=== PATIENT | male | born 1985 | race Caucasian/White ===

== ENCOUNTER 2017-05-25 11:27 | Emergency (ER) | payer OTHER, SELFPAY ==
[2017-05-25 11:27] VITALS: BP 167/110; PULSE 67; RESP 18; TEMP 36.6; O2SAT 96; BMI 37.3
--- NOTE | 2017-05-25 11:47 | NURSING ---
NO OLD EKGS
--- NOTE | 2017-05-25 11:57 | RAD_ITS ---
STUDY: X-RAY CHEST REASON FOR EXAM: Male, 21 years old. Bilateral lower leg edema. TECHNIQUE: Single AP portable view of the chest. COMPARISON: None. FINDINGS: There are monitoring devices. The lungs are clear and expanded. There is no demonstrated pleural abnormality. Normal size heart. Normal mediastinum and ambika. Normal visualized pulmonary arteries. Normal visualized aortic arch and descending thoracic aorta. Normal visualized thoracic spine. Normal visualized ribs, clavicles, and shoulders. There is no demonstrated abnormality of the visualized soft tissue structures of the upper abdomen. RAD/Chest 1 View (Portable) IMPRESSION: Normal x-ray examination of the chest. Electronically Signed: Gera Delcid MD at 12:14 EDT , Service support ,
--- NOTE | 2017-05-25 11:58 | EKG12_ITS ---
Test Reason : Blood Pressure : / mmHG Vent. Rate : 076 BPM Atrial Rate : 076 BPM P-R Int : 190 ms QRS Dur : 098 ms QT Int : 390 ms P-R-T Axes : 000 -08 236 degrees QTc Int : 438 ms Normal sinus rhythm T wave abnormality, consider lateral ischemia Abnormal ECG Confirmed by MARLON INMAN, STEPHIE ([id number]), film and video editor SAIRA NIEVES ([id number]) on 05/28/2017 1:30:35 PM Referred By: GIUSEPPE Confirmed By:STEPHIE MASON MD
--- NOTE | 2017-05-25 11:58 | VDLE_ITS ---
Reason For Study: LEG SWELLING RIGHT LEFT GSV is normal. GSV is normal. CFV is compressible, spontaneous, phasic, CFV is compressible, spontaneous, phasic, competent and demonstrates normal competent, and demonstrates normal augmentation. augmentation. FV is compressible, spontaneous, phasic, FV is compressible, spontaneous, phasic, competent and demonstrates normal competent and demonstrates normal augmentation. augmentation. POP V is compressible, spontaneous, phasic, POP V is compressible, spontaneous, phasic, competent and demonstrates normal competent and demonstrates normal augmentation. augmentation. T/P Trunk is compressible. T/P Trunk is compressible. PTV is compressible. PTV is compressible. RT PerV is compressible. LT PerV is compressible. Procedure Exam performed in department. A preliminary report was called and/or faxed to Dr. Cowan. Interpretation Summary Deep veins of the lower extremities are bilaterally patent and compressible segmentally. There is no evidence of deep vein thrombosis on either side. Valvular competence appears intact within the proximal deep venous systems bilaterally. The greater saphenous veins appear bilaterally patent and compressible segmentally. Ordering Physician: Arely Cowan Performed By: Elise Azul RVT
[2017-05-25 12:35] LABS: Absolute Lymphocyte Count 1.93 X10^3/ul (0.83-4.51); Absolute Neutrophil Count 5.5 X10^3/uL (2.0-7.7); Basophil# 0.06 X10^3/uL; Basophil% 0.7 % (0-1); Eosinophil# 0.45 X10^3/uL; Eosinophils% 5.2 % (0-5); Hemoglobin 15.8 g/dl (13.0-16.5); Lymphocyte # 1.93 X10^3/ul (4.0); Lymphocyte % 22.1 % (19-41); Mean Corp Hgb Conc 32.9 g/gl (32-36); Mean Corpuscular Volume 88.1 fL (80-94); Neutrophil # 5.45 X10^3/uL (2.7-7.7); Neutrophil % 62.5 % (47-70); Platelet Count 259 K/mm3 (150-450); RBC Distribution Width CV 15.8 % (11.6-14.6); RBC Distribution Width SD 51.4 fl (35.1-43.9); Red Blood Count 5.45 M/mm3 (4.6-6.2); White Blood Count 8.7 K/mm3 (4.4-11.0)
[2017-05-25 12:36] LABS: POSITIVE COUNT NO; POSITIVE DIFFERENTIAL NO; POSITIVE MORPHOLOGY NO
[2017-05-25 12:47] LABS: Anion Gap 8 (5-15); BUN 17 mg/dL (7-18); BUN/Creat Ratio 12.1 RATIO (10-20); Calcium,Total 8.7 mg/dL (8.5-10.1); Chloride 101 mmol/L (98-107); EST Glomerular Filtration Rate 68 mL/min (>60); Est Glom Filt Rate - Afr Amer 82 mL/min (>60); Estimated Creatinine Clearance 95.12 ml/min; Glucose 91 mg/dL (74-106); Potassium 3.8 mmol/L (3.5-5.1); Sodium Level 140 mmol/L (136-145)
[2017-05-25 13:01] LABS: BNP,B-Type NATRIURETIC PEPTIDE 4.1 pg/mL (0-100)
--- NOTE | 2017-05-25 13:31 | ED.VISSUMM ---
- ER Visit Summary Date of Service: 05/25/17 Chief Complaint: Edema History of Present Illness: The patient is a 31 M who reports swelling to both legs for the last 3 days. He is on his feet a lot at work. He describes some mild pain around the ankles and lower legs. He denies chest pain or shortness of breath. He reportedly has a history of a stiff aortic valve. He does not follow up with doctors. Physical Examination: Vital signs are significant for blood pressure 167/110, otherwise unremarkable. Head neck examination is unremarkable. Heart is regular rate and rhythm. I do not appreciate a murmur. Lung sounds are clear. Abdomen is soft nontender. Lower extremity examination was 2+ edema to the bilateral ankles. He has small broken capillaries on the medial ankles. He has strong distal pulses. Test Results: Venous ultrasound of the legs unremarkable. CBC and chemistry studies are significant only for creatinine 1.4. BNP is normal. EKG is sinus at 76 with lateral T inversions. Do not have any priors available for comparison. Emergency Department Course and Treatment: Patient denies any chest pain or shortness of breath. I recommended follow-up with cardiology regarding this abnormal aortic valve. Treatment Plan: [] Disposition: Discharge Impression: Edema bilateral lower extremities This note was generated with [employer] dictation software. It may contain incorrect words, spelling, and punctuation that were not noted in review of the chart prior to signing ED Disposition - Plan for ED Patient: Chief Complaint: Edema Referrals: Care Physician,No Primary [Primary Care Provider] -
--- NOTE | 2017-05-25 13:33 | ED.DEP ---
ED Disposition - Plan for ED Patient: Disposition: Home or Assisted Living Chief Complaint: Edema Instructions: ED Leg Swelling Bilateral Referrals: Mau Matute MD [STAFF PHYSICIAN] - 1-2 Weeks
[2017-05-25 13:45] VITALS: BP 147/107; PULSE 77
== END 2017-05-25 13:47 | disposition home or self-care (01) ==
PROVIDERS: Emergency Provider Emergency Medicine
DX: R60.0 Localized edema (principal); E66.9 Obesity, unspecified; Z68.37 Body mass index [BMI] 37.0-37.9, adult
CPT/HCPCS: 71045; 80048; 83880; 85025; 93005; 93970; 99283

== ENCOUNTER → 2020-06-29 09:54 | Outpatient (CLI) | payer OTHER, MEDICAID, SELFPAY ==
[2020-06-24 13:38] VITALS: BMI 37.3
[2020-06-29 12:18] LABS: Absolute Lymphocyte Count 0.75 X10^3/uL (0.83-4.51); Absolute Neutrophil Count 6.7 X10^3/uL (2.0-7.7); Basophil# 0.05 X10^3/uL; Basophil% 0.6 % (0-1); Eosinophil# 0.33 X10^3/uL; Eosinophils% 3.9 % (0-5); Hemoglobin 10.1 g/dL (13.0-16.5); Lymphocyte # 0.75 X10^3/ul (0.83-4.51); Lymphocyte % 8.8 % (19-41); Mean Corp Hgb Conc 29.7 g/dL (32-36); Mean Corpuscular Hgb 26.2 pg (27.0-32.0); Mean Corpuscular Volume 88.1 fL (80-94); Mean Platelet Vol. 10.7 fl (6.2-12.0); Monocyte# 0.65 X10^3/uL; Monocyte% 7.6 % (0-10); NRBC Flagged by Analyzer 0 % (0-5); Neutrophil # 6.66 X10^3/uL (2.7-7.7); Neutrophil % 78.4 % (47-70); Platelet Count 304 K/mm3 (150-450); RBC Distribution Width CV 15.7 % (11.6-14.6); RBC Distribution Width SD 50.5 fl (35.1-43.9); Red Blood Count 3.86 M/mm3 (4.6-6.2); White Blood Count 8.5 K/mm3 (4.4-11.0)
[2020-06-29 12:33] LABS: Vitamin D,25 Hydroxy 18.9 ng/mL
[2020-06-29 12:45] LABS: Hemoglobin A1c 5.8 % (3.8-5.6)
[2020-06-29 13:17] LABS: AST(SGOT) 19 U/L (15-37); Alanine Aminotransfer ALT/SGPT 32 U/L (16-61); Albumin, Serum 3.7 g/dL (3.2-5.0); Alkaline Phosphatase 78 U/L (45-117); Anion Gap 9 (5-15); BUN 75 mg/dL (7-18); BUN/Creat Ratio 16.5 RATIO (10-20); Calcium,Total 8.9 mg/dL (8.5-10.1); Chloride 104 mmol/L (98-107); Cholesterol 234 mg/dL (200); Creatinine, Serum 4.55 mg/dL (0.70-1.30); EST Glomerular Filtration Rate 16 mL/min (>60); Est Glom Filt Rate - Afr Amer 19 mL/min (>60); Globulin 3.7 g/dL (2.2-4.2); Glucose 97 mg/dL (74-106); High Density Lipoprotein 46 mg/dL; Potassium 4.4 mmol/L (3.5-5.1); Protein, Total 7.4 g/dL (6.4-8.2); Sodium Level 136 mmol/L (136-145); Triglycerides 102 mg/dL; Very Low Density Lipoprotein 20 mg/dL (5-40)
[2020-06-29 16:16] LABS: Free T3 1.1 pg/mL (2.18-3.98); T4 Free Direct 0.33 ng/dL (0.76-1.46)
== END ==
PROVIDERS: PCP Internal Medicine; Referring Provider Internal Medicine; Visit Provider Internal Medicine
DX: N04.1 Nephrotic syndrome with focal and segmental glomerular lesions (principal); N19 Unspecified kidney failure; I10 Essential (primary) hypertension; R60.0 Localized edema; R79.89 Other specified abnormal findings of blood chemistry
CPT/HCPCS: 36415; 80053; 80061; 82306; 83036; 84439; 84443; 84481; 85025

== ENCOUNTER → 2020-07-08 13:02 | Outpatient (CLI) | payer OTHER, MEDICAID, SELFPAY ==
[2020-06-24 13:38] VITALS: BMI 37.3
--- NOTE | 2020-07-08 13:04 | ECHOD_ITS ---
Reason For Study: BICUSPID AORTIC VALVE Procedure This was a 2D Doppler, Color Flow transthoracic echocardiogram. Exam performed in department. Left Ventricle Normal LV size. Mild concentric left ventricular hypertrophy. Left ventricular systolic function is normal. The estimated ejection fraction is 60 %. Stage 2 diastolic dysfunction. No regional wall motion abnormalities noted. Right Ventricle Normal RV size. Normal systolic function. Atria Normal left atrium. Normal right atrium. Mitral Valve Normal mitral valve. Tricuspid Valve Normal tricuspid valve. Aortic Valve The aortic valve is not well visualized and a bicuspid valve cannot be completely excluded however the gradients appear to be suggestive of no stenosis. Pulmonic Valve Normal pulmonic valve. Great Vessels Normal aortic root. The pulmonary artery is normal size. Normal inferior vena cava. Pericardium/Pleural No pericardial effusion. MMode/2D Measurements & Calculations LVIDd: 6.0 cm IVSd: 1.2 cm LVOT diam: 2.3 cm LVIDs: 3.8 cm LVPWd: 1.4 cm LVOT area: 4.1 cm2 RVDd: 4.0 cm FS: 35.9 % Ao root diam: 3.3 cm LAV(MOD-bp): 91.8 ml LA A4 area: 26.3 cm2 LAV(MOD-bp) Indexed: 36.8 ml/m2 LAV(MOD-sp2): 90.5 ml LAV(MOD-sp4): 92.8 ml LA dimension(2D): 5.7 cm RA A4 area: 16.1 cm2 Doppler Measurements & Calculations MV E max scooter: 139.0 cm/sec Lat Peak E' Scooter: 13.2 cm/sec Med Peak E' Scooter: 10.4 cm/sec MV A max scooter: 67.5 cm/sec E/E' lat: 10.5 E/E' med: 13.3 MV E/A: 2.1 Ao V2 max: 202.9 cm/sec LV V1 max: 113.7 cm/sec SV(LVOT): 95.3 ml Ao max P.6 mmHg LV V1 max P.2 mmHg Ao V2 mean: 156.3 cm/sec LV V1 mean P.2 mmHg Ao mean P.5 mmHg LV V1 mean: 87.2 cm/sec Ao V2 VTI: 38.3 cm LV V1 VTI: 23.5 cm JASMINE(I,D): 2.5 cm2 JASMINE(V,D): 2.3 cm2 PA V2 max: 127.6 cm/sec TR max scooter: 329.3 cm/sec TR max P.5 mmHg ECHO/Echo Complete Interpretation Summary Normal LV size. Left ventricular systolic function is normal. The estimated ejection fraction is 60 %. The aortic valve is not well visualized and a bicuspid valve cannot be complete ly excluded however the gradients appear to be suggestive of no stenosis. Stage 2 diastolic dysfunction. Structurally normal valves. Ordering Physician: Toshia Mario Referring Physician: Toshia Mario Performed By: Elodia Tran, LUCA, RVT
== END ==
PROVIDERS: PCP Internal Medicine; Referring Provider Internal Medicine; Visit Provider Internal Medicine
DX: I35.0 Nonrheumatic aortic (valve) stenosis (principal)
CPT/HCPCS: 93306

== ENCOUNTER → 2020-09-02 10:21 | Outpatient (CLI) | payer OTHER, SELFPAY ==
[2020-06-24 13:38] VITALS: BMI 37.3
[2020-09-02 11:41] LABS: Hematocrit 32.8 % (40-54); Hemoglobin 9.9 g/dL (13.0-16.5); Mean Corp Hgb Conc 30.2 g/dL (32-36); Mean Corpuscular Hgb 25.5 pg (27.0-32.0); Mean Corpuscular Volume 84.5 fL (80-94); Platelet Count 272 K/mm3 (150-450); RBC Distribution Width CV 15.7 % (11.6-14.6); RBC Distribution Width SD 47.9 fl (35.1-43.9); Red Blood Count 3.88 M/mm3 (4.6-6.2); White Blood Count 7.1 K/mm3 (4.4-11.0)
[2020-09-02 11:55] LABS: Protein, Urine (Random) 121.9 mg/dL (<11.9); Protein:Creat Ratio 2715 mg/g CRE (0-200)
[2020-09-02 12:19] LABS: Albumin, Serum 3.9 g/dL (3.2-5.0); BUN 71 mg/dL (7-18); BUN/Creat Ratio 11.7 RATIO (10-20); Chloride 107 mmol/L (98-107); Creatinine, Serum 6.06 mg/dL (0.70-1.30); EST Glomerular Filtration Rate 11 mL/min (>60); Est Glom Filt Rate - Afr Amer 14 mL/min (>60); Glucose 92 mg/dL (74-106); Phosphorus 7.2 mg/dL (2.5-4.9); Potassium 4.1 mmol/L (3.5-5.1); Sodium Level 139 mmol/L (136-145)
[2020-09-02 12:21] LABS: Vitamin D,25 Hydroxy 38.8 ng/mL
[2020-09-02 12:27] LABS: PTHIN 138.9 pg/mL (18.4-80.1)
== END ==
PROVIDERS: PCP Internal Medicine; Referring Provider Internal Medicine Nephrology; Visit Provider Internal Medicine Nephrology
DX: N18.5 Chronic kidney disease, stage 5 (principal)
CPT/HCPCS: 36415; 80069; 82306; 82570; 83970; 84156; 85027

== ENCOUNTER → 2020-09-28 11:03 | Outpatient (CLI) | payer OTHER, SELFPAY ==
[2020-06-24 13:38] VITALS: BMI 37.3
[2020-09-28 13:22] LABS: Free T3 1.7 pg/mL (2.18-3.98); T4 Free Direct 0.54 ng/dL (0.76-1.46)
== END ==
PROVIDERS: PCP Internal Medicine; Referring Provider Internal Medicine; Visit Provider Internal Medicine
DX: E03.9 Hypothyroidism, unspecified (principal)
CPT/HCPCS: 36415; 84439; 84443; 84481

== ENCOUNTER → 2020-10-12 09:37 | Outpatient (CLI) | payer OTHER, MEDICAID, SELFPAY ==
[2020-06-24 13:38] VITALS: BMI 37.3
--- NOTE | 2020-10-12 09:41 | VDUE_ITS ---
Reason For Study: ESRD Right Arm Left Arm Right Cephalic Vein at the wrist measures Left Cephalic Vein at the wrist measures 0.26 x 0.26 cm. 0.25 x 0.24 cm. Right Cephalic Vein in the forearm measures Left Cephalic Vein in the forearm measures 0.26 x 0.25 cm. 0.26 x 0.23 cm. Right Cephalic Vein below antecub measures Left Cephalic Vein below antecub measures 0.29 x 0.27 cm. 0.38 x 0.37 cm. Right Cephalic Vein above antecub measures Left Cephalic Vein above antecub measures 0.54 x 0.56 cm. 0.45 x 0.45 cm. Right Cephalic Vein mid bicep measures 0.54 Left Cephalic Vein at mid bicep measures x 0.54 cm. 0.53 x 0.52 cm. Right Cephalic Vein at the shoulder measures Left Cephalic Vein at the shoulder measures 0.49 x 0.50 cm. 0.43 x 0.44 cm. Right Basilic Vein at the origin measures Basilic vein at origin measures 0.45 x 0.46 0.54 x 0.58 cm. cm. Right Basilic Vein mid bicep measures 0.48 x Basilic vein at bicep measures 0.48 x 0.48 0.47 cm. cm. Right Basilic Vein above antecub measures Basilic vein above antecub measures 0.46 x 0.38 x 0.38 cm. 0.43 cm. Right Brachial artery measures 0.45 x 0.44 Left Brachial artery measures 0.45 x 0.47 cm cm with a velocity of 144.9 cm/sec. with a velocity of 144.8 cm/sec. Right Radial artery measures 0.25 x 0.26 cm Left Radial artery measures 0.30x 0.30 cm with a velocity of 121.5 cm/sec. with a velocity of 100.7 cm/sec. VL/Saphenous Vein Mapping, Bilat Interpretation Summary Patent and compressible bilateral upper extremity cephalic and basilic veins wi th dimensions as noted Normal diameter and flow bilateral brachial and radial arteries Ordering Physician: Karine Pichardo Referring Physician: Toshia Mario Performed By: Smitha Grey RVT ?
== END ==
PROVIDERS: PCP Internal Medicine; Referring Provider Internal Medicine Nephrology; Visit Provider Internal Medicine Nephrology
DX: Z01.818 Encounter for other preprocedural examination (principal); N18.6 End stage renal disease
CPT/HCPCS: 93970

== ENCOUNTER 2020-11-02 08:25 | Day surgery (SDC) | payer OTHER, MEDICAID, SELFPAY ==
--- NOTE | 2020-10-28 10:18 | EKG12_ITS ---
Test Reason : PREOP Blood Pressure : / mmHG Vent. Rate : 070 BPM Atrial Rate : 070 BPM P-R Int : 192 ms QRS Dur : 102 ms QT Int : 422 ms P-R-T Axes : -15 005 -11 degrees QTc Int : 455 ms Normal sinus rhythm Normal ECG Confirmed by LYNNETTE INMAN, SHANIQUA ([id number]), book or script editor REESE BLACKMAN ([id number]) on 11/02/2020 8:14:06 AM Referred By: Roberth Gamez Confirmed By:CURT CHURCH MD
[2020-10-28 11:35] LABS: Hematocrit 37.5 % (40-54); Hemoglobin 11.7 g/dL (13.0-16.5); Mean Corp Hgb Conc 31.2 g/dL (32-36); Mean Corpuscular Hgb 26.3 pg (27.0-32.0); Mean Corpuscular Volume 84.3 fL (80-94); Mean Platelet Vol. 10.3 fl (6.2-12.0); Platelet Count 246 K/mm3 (150-450); RBC Distribution Width CV 16.5 % (11.6-14.6); RBC Distribution Width SD 50.1 fl (35.1-43.9); Red Blood Count 4.45 M/mm3 (4.6-6.2); White Blood Count 9.4 K/mm3 (4.4-11.0)
[2020-10-28 11:52] LABS: Anion Gap 8 (5-15); BUN 41 mg/dL (7-18); Calcium,Total 10.8 mg/dL (8.5-10.1); Chloride 99 mmol/L (98-107); Creatinine, Serum 5.85 mg/dL (0.70-1.30); EST Glomerular Filtration Rate 12 mL/min (>60); Est Glom Filt Rate - Afr Amer 14 mL/min (>60); Glucose 113 mg/dL (74-106); Potassium 3.7 mmol/L (3.5-5.1); Sodium Level 136 mmol/L (136-145)
[2020-11-02] VITALS (9 sets, daily range): BP systolic 147–157; BP diastolic 83–95; PULSE 72–76; RESP 16; TEMP 36.2–36.9; O2SAT 94–99; BMI 35.2
[2020-11-02] MEDS: Lactated Ringers 1,000 ML 100 ML IV (09:00)
--- NOTE | 2020-11-02 09:35 | HP.PCM_ITS ---
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 Is patient in pain?: No Allergies No Known Allergies Allergy (Verified 10/14/20 09:00) Medications compression socks, medium #1 ea 06/25/20 [Rx Confirmed 10/14/20] hydralazine 100 mg tablet 100 mg PO TID #180 tab 09/02/20 [Rx Confirmed 10/14/20] amlodipine 10 mg tablet 10 mg PO DAILY #90 tab 09/27/20 [Rx Confirmed 10/14/20] levothyroxine 100 mcg tablet 100 mcg PO DAILY #30 tab 09/28/20 [Rx Confirmed 10/14/20] PFS Medical History Aortic stenosis Asthma FSGS (focal segmental glomerulosclerosis) with nephrosis Hypertension Hypothyroidism Kidney failure Obesity (BMI 30-39.9) Surgical History Status post biopsy of kidney Family History Mother , age 45 Diabetes Pulmonary embolism Grandmother Kidney disease Brother Hypertension Social History Smoking Status: Never smoker alcohol intake: never substance use type: does not use what type of physical activity do you participate in: other details: physical job HPI HPI HPI: TAMMIE GARRETT, is a 35 M who presents to the office today for surgical consultation regarding creation of arteriovenous hemodialysis fistula. The patient is referred by Dr. Moreno and Dr. Pichardo and a written copy of my surgical consult and recommendations will return to them. According the patient he considers his current and ongoing mounter flutes and piccolos. The patient is ambidextrous. He writes with his right hand. Feels that his right hand is more pertinent. He is currently being dialyzed via tunneled dialysis catheters. He has not yet seen transplant team and has an appointment November 2020. He is not on any anticoagulants. He notes diabetes. He denies any myocardial infarction or stroke. Denies DVT. He claims that January 2020 had COVID-19. He has not pursued Covid vaccination. Reason For Study: ESRD Right Arm Left Arm Right Cephalic Vein at the wrist measures Left Cephalic Vein at the wrist measures 0.26 x 0.26 cm. 0.25 x 0.24 cm. Right Cephalic Vein in the forearm measures Left Cephalic Vein in the forearm measures 0.26 x 0.25 cm. 0.26 x 0.23 cm. Right Cephalic Vein below antecub measures Left Cephalic Vein below antecub measures 0.29 x 0.27 cm. 0.38 x 0.37 cm. Right Cephalic Vein above antecub measures Left Cephalic Vein above antecub measures 0.54 x 0.56 cm. 0.45 x 0.45 cm. Right Cephalic Vein mid bicep measures 0.54 Left Cephalic Vein at mid bicep measures x 0.54 cm. 0.53 x 0.52 cm. Right Cephalic Vein at the shoulder measures Left Cephalic Vein at the shoulder measures 0.49 x 0.50 cm. 0.43 x 0.44 cm. Right Basilic Vein at the origin measures Basilic vein at origin measures 0.45 x 0.46 0.54 x 0.58 cm. cm. Right Basilic Vein mid bicep measures 0.48 x Basilic vein at bicep measures 0.48 x 0.48 0.47 cm. cm. Right Basilic Vein above antecub measures Basilic vein above antecub measures 0.46 x 0.38 x 0.38 cm. 0.43 cm. Right Brachial artery measures 0.45 x 0.44 Left Brachial artery measures 0.45 x 0.47 cm cm with a velocity of 144.9 cm/sec. with a velocity of 144.8 cm/sec. Right Radial artery measures 0.25 x 0.26 cm Left Radial artery measures 0.30x 0.30 cm with a velocity of 121.5 cm/sec. with a velocity of 100.7 cm/sec. VL/Saphenous Vein Mapping, Bilat Interpretation Summary Patent and compressible bilateral upper extremity cephalic and basilic veins with dimensions as noted Normal diameter and flow bilateral brachial and radial arteries Ordering Physician: Karine Pichardo Referring Physician: Toshia Mario Performed By: Smitha Grey RVT ? 10/12/20 [id number] Roberth LARA General General: Yes fatigue; No weight change, appetite, colon cancer, breast cancer or weakness HEENT HEENT: No difficulty swallowing, eye injury, eye surgery, swollen glands or hoarseness Endo Endocrine: No thyroid disease, diabetes mellitus, thyroid cancer, Hair loss, heat intolerance or cold intolerance Skin Skin: No rash or changing moles Breast Breast: No left breast lump, right breast lump, nipple discharge, breast pain, a bnormal mammogram, abnormal US or breast enlargement Musc Musculoskeletal: No back problems, arthritis, rheumatoid arthritis, gout or joint pain Cardio Cardiovascular: Yes high blood pressure; No murmur, pacemaker, heart disease, atrial fibrillation, heart attack, heart stent, palpitations, shortness of breat with exertion or chest pain Psych Psychiatric: No depression, anxiety or hearing voices Resp Respiratory: No shortness of breath, No sleep apnea, No cough, No COPD, Yes asthma, No emphysema and No wheezing Gastro Gastrointestinal: No abdominal pain, No nausea or vomiting, No diarrhea, No constipation, No blood in stool, No acid reflux, Yes hemorrhoids, No ulcers, No gallbladder problem and No black,tarry stools [place] Hematologic: No blood thinners, No blood disorders, No bleeding, No anemia and No blood clots Neuro Neurologic: No system reviewed and no additional complaints, except as documented, No as per HPI, No abnormal gait, No abnormal hearing, No abnormal movements, No abnormal speech, No behavioral changes, No burning sensations, No confusion, No convulsions, No disequilibrium, No dizziness, No localized weakness, No frequent falls, No headache(s), No lack of coordination, No loss of vision, No memory loss, No numbness, No other visual disturbances, No radicular pain, No restless legs, No sensory deficit, No syncope, No tingling, No tremor(s), No weakness and No other Exam Const General: cooperative, healthy appearing and comfortable Nutritional Appearance: obese Orientation: alert and awake [facility] Head: normal to inspection Eyes General: appearance normal, both eyes and all related structures Resp Effort & Inspection: normal respiratory effort Auscultation: clear to auscultation bilaterally Cardio Rate: regular rate Rhythm: regular rhythm GI Palpation: soft Auscultation: normal bowel sounds Skin General: no rashes or lesions noted Neuro General: patient alert and patient awake Extrem Other: Left radial pulse 2-3+. Jordon test demonstrates adequate left ulnar flow. Left forearm is thick and heavy, cephalic vein unfortunately branches multiple times in the forearm. I was able to map and marked with permanent ink this is in the mid more dorsal forearm. It has had a point where that cephalic vein extends across the antecubital space and into the upper arm. Psych Affect: blunted COVID (Procedure Consent) Procedure Criteria Procedure Criteria: Yes Elective The surgeon/proceduralist and patient have discussed in detail the risk of exposure to and/or potential harm posed by the COVID-19 virus with having a surgery/procedure at this time versus the risk of delaying the surgery/procedure. It is not possible to know either the risk of delaying the surgery or procedure or chance of getting an infection with perfect accuracy, but a joint decision was made between the patient and the surgeon/proceduralist to proceed at this time with the scheduled surgery/procedure as indicated on the consent form. Assessment and Plan Assessment and Plan (1) Chronic renal insufficiency, stage V: Status: Chronic Plan - Dr. Roberth Gamez MD: I recommend to the patient a left mid dorsal forearm transposed cephalic vein to radial artery arteriovenous hemodialysis fistula creation. He is aware that this will be technically more challenging but hopefully will be able to preserve a longer length of his cephalic vein particularly at his young age of 35. Unfortunately the cephalic vein at the wrist is diminutive and there is multiple branching. He is aware of the technique, benefit, risk, alternatives. I have inspected his left upper extremity with ultrasound imaging myself. I have identified the cephalic vein at the location of seemingly adequate diameter however it will require transposition and a much more challenging approach to the radial artery as it will be deeper. He is aware that there are no guarantees of success. He has had an opportunity to ask and have questions answered. We will schedule and expedite his care. Moreover I have instructed him that subsequent to procedure I would recommend that he initiate a low-dose 81 mg aspirin daily as long as he does not have other contraindication. Copy Dr Pichardo and Dr. Toshia Gamez M.D., F.A.C.S. I have re-examined the patient. There are no clinical changes since date of exam. Roberth Gamez M.D., F.A.C.S.
--- NOTE | 2020-11-02 10:04 | EX.PCM.DISCH ---
Discharge Instructions Procedure Fistula Diet Discharge Diet: Renal Diet Activity Discharge Activity: May Not Drive (for 2-3 days or while taking narcotic pain medications.), May Shower and May Take a Tub Bath (in 5 days.) Lifting Restrictions: 5 pounds Keep extremity elevated above heart level: - (Keep arm elevated above the heart level for 3 days.) Dressing / Incision Call your doctor if your incision/area has: Continuous Slow Oozing, Sudden Increased Bleeding (apply pressure and call your doctor.), Increased Pain/ Swelling, Increased Redness and Foul Smelling Discharge Call your doctor if you observe: Fever of 101 or Higher Suture Line Care: Avoid Pulling/Pushing and Avoid Pinching/Bending Cleanse incision/area with: Keep Dressing Clean & Dry Additional Dressing/Incision Instructions:: Change or remove dressing in one day. May protect with a gauze bandaid. Follow Up Care Please Follow Up With: Roberth Gamez MD When: Call [phone] to make an appointment for suture removal and follow up in 1 week. Test Results: Test results from this visit will be discussed in further detail at your follow-up appointment, if applicable. Discharge Plan Admission Primary Reason for Your Visit: Chronic renal failure in need of arteriovenous hemodialysis access Attending Provider: Roberth Gamez Primary Care Provider: Toshia Mario Discharge Orders/Prescriptions Prescriptions: New hydrocodone-acetaminophen 5-325 mg tablet 1 tab PO Q8H PRN (Reason: pain) 2 Days Qty: 6 RF: 0 Continued (DME) compression socks, medium Misc See Rx Instructions .ROUTE .MEDSUPPLY Qty: 1 RF: 1 carvedilol 25 mg tablet 25 mg PO BID RF: 0 sevelamer carbonate 800 mg tablet 800 mg PO TID RF: 0 levothyroxine 100 mcg tablet 100 mcg PO DAILY RF: 0 amlodipine 10 mg tablet 10 mg PO DAILY RF: 0 hydralazine 100 mg tablet 100 mg PO TID RF: 0 Referrals / Follow Up: Toshia Mario MD [Primary Care Provider] - Disposition Disposition (needs filled in before D/C Order can be placed): Home, Self Care
[2020-11-02] MEDS: Heparin Injection (Vial) 5,000 UNIT/ML VIAL 5000 UNIT (10:33)
[2020-11-02] MEDS: Bupivacaine Mpf 0.5% 30 ML VIAL (11:20)
[2020-11-02] MEDS: Lidocaine 0.5% (50 ml) 50 ML Vial (11:20)
[2020-11-02] MEDS: Lidocaine 1% (30 ml sdv) 30 ML Vial (11:20)
--- NOTE | 2020-11-02 12:29 | OP.PCM_ITS ---
Problems Associated Problem List Diagnoses (1) Chronic renal insufficiency, stage V: Report of Operation Date of Procedure: 11/02/20 Pre-Operative Diagnosis: Stage V chronic renal insufficiency Post-Operative Diagnosis: Same Surgery/Procedure Performed:: Transposition loop left forearm cephalic vein to brachial artery arteriovenous hemodialysis fistula creation Description of Surgical Findings:: Timeout and informed consent was obtained. 35-year-old gent was taken the operating placed on the table underwent monitored anesthesia care. Ancef 2 g were given intravenously preoperatively. Clean procedure. The left extremity sterilely prepped and draped. Throughout the procedure 24 cc of 1% lidocaine mixed 50-50 with 0.5% Marcaine was utilized and 22 cc of half percent lidocaine. Ultrasound was used to map the course of the cephalic vein in the forearm. It became diminutive in the mid forearm distally with multiple branches. I instilled local in the mid forearm and more proximally.a longitudinal incision sharp and blunt dissection was used to harvest the vein side branches secured with hemoclips. I had dissected free at a branch point. I used hemoclips to ligate the vein distally none I spatulated vein irrigated and appeared to be of reasonable diameter. I then made a longitudinal incision in the mid forearm overlying the radial artery and despite tedious sharp and blunt dissection aided by Doppler I felt that this dissection now was too deep and not an appropriate plane to allow for easy visualization of the radial artery anastomosis. [place] that the only way down to accomplish this in a reasonable fashion was to move the cephalic vein back to the brachial artery. So local was instilled and a longitudinal incision was made in the proximal forearm overlying the brachial artery and sharp dissection was used to mobilize the. I then used a straight tunneler and tunneled the vein underneath the skin between the 2 longitudinal incisions. It was irrigated had a good positional lie. The patient received 11,000 and's of heparin peripheral vascular clamps were placed on the brachial artery and 11 blade was used to make an arteriotomy with I extended this with Rahman scissors. At the spatulated portion of the vein a end-to-side venous to arterial anastomosis was created with running 7-0 Prolene. Couple repair sutures of 7-0 Prolene assisted. There was excellent flow and good positioning. I then closed the wounds with interrupted subdermal 3-0 Vicryl. The vein remained in good position as I continue to work at keeping it in a curvilinear lie. Then the wounds were further closed running septic or 4 Monocryl. Steri-Strips Telfa soft roll Neal wrap applied. There is a good 2+ radial pulse the hand was warm and viable. Specimens none. Drains none. Blood loss 100 cc. He tolerated the procedure well was taken to the recovery room in satisfactory addition without apparent complication. Roberth Gamez M.D., F.A.C.S. Surgeon: Roberth Gamez Type of Anesthesia: Local MAC Anesthesiologist: Randy Vu
[2020-11-02] MEDS: HYDROcodone Bitartrate/Apap 5/325 Tablet PO (13:51)
--- NOTE | 2020-11-02 14:35 | SUR.PHASEII ---
rn redressed fistula site with web roll and acewrap. pharmacy to deliver rx to bedside.
== END 2020-11-02 14:57 | disposition home or self-care (01) ==
LOC: SDC 08:26 → AC 08:27
PROVIDERS: PCP Internal Medicine; Referring Provider Surgery; Visit Provider Surgery
PROC: (CPT 36821; principal; 2020-11-02 10:20)
DX: Z46.89 Encounter for fitting and adjustment of other specified devices (principal); E03.9 Hypothyroidism, unspecified; E66.9 Obesity, unspecified; I12.0 Hypertensive chronic kidney disease with stage 5 chronic kidney disease or end stage renal disease; E11.22 Type 2 diabetes mellitus with diabetic chronic kidney disease; N18.5 Chronic kidney disease, stage 5; J45.909 Unspecified asthma, uncomplicated; Z79.899 Other long term (current) drug therapy; Z79.890 Hormone replacement therapy; Z86.16 Personal history of COVID-19
CPT/HCPCS: 36821; 36415; 80048; 85027; 87426; 93005; C9803; J7030

== ENCOUNTER → 2020-11-18 09:44 | Outpatient (CLI) | payer OTHER, MEDICAID, SELFPAY ==
[2020-11-18 11:46] LABS: T4 Free Direct 0.92 ng/dL (0.76-1.46)
== END ==
PROVIDERS: PCP Internal Medicine; Referring Provider Internal Medicine; Visit Provider Internal Medicine
DX: E03.9 Hypothyroidism, unspecified (principal)
CPT/HCPCS: 36415; 84439; 84443; 84481

== ENCOUNTER → 2021-01-13 08:05 | Outpatient (CLI) | payer OTHER, MEDICAID, SELFPAY ==
[2021-01-13 10:41] LABS: Free T3 2.8 pg/mL (2.18-3.98); T4 Free Direct 0.97 ng/dL (0.76-1.46); Thyroid Stim Hormone (TSH) 4.84 uIU/mL (0.358-3.74)
== END ==
PROVIDERS: PCP Internal Medicine; Referring Provider Internal Medicine; Visit Provider Internal Medicine
DX: E03.9 Hypothyroidism, unspecified (principal)
CPT/HCPCS: 36415; 84439; 84443; 84481

== ENCOUNTER → 2021-02-01 13:01 | Outpatient (CLI) | payer OTHER, MEDICAID, SELFPAY ==
[2021-02-01 13:21] LABS: Absolute Neutrophil Count 4.7 X10^3/uL (2.0-7.7); Basophil# 0.07 X10^3/uL; Basophil% 0.9 % (0-1); Eosinophil# 0.27 X10^3/uL; Eosinophils% 3.5 % (0-5); Hematocrit 34.7 % (40-54); Hemoglobin 11.3 g/dL (13.0-16.5); Lymphocyte % 22.2 % (19-41); Mean Corp Hgb Conc 32.6 g/dL (32-36); Mean Corpuscular Hgb 30.9 pg (27.0-32.0); Mean Corpuscular Volume 94.8 fL (80-94); Mean Platelet Vol. 9.8 fl (6.2-12.0); Monocyte# 0.89 X10^3/uL; Monocyte% 11.6 % (0-10); NRBC Flagged by Analyzer 0 % (0-5); Neutrophil # 4.65 X10^3/uL (2.7-7.7); Neutrophil % 60.9 % (47-70); Platelet Count 355 K/mm3 (150-450); RBC Distribution Width SD 51.6 fl (35.1-43.9); Red Blood Count 3.66 M/mm3 (4.6-6.2); White Blood Count 7.7 K/mm3 (4.4-11.0)
[2021-02-01 13:41] LABS: Anion Gap 11 (5-15); BUN 46 mg/dL (7-18); BUN/Creat Ratio 6.9 RATIO (10-20); Calcium,Total 10.9 mg/dL (8.5-10.1); Chloride 97 mmol/L (98-107); Creatinine, Serum 6.62 mg/dL (0.70-1.30); EST Glomerular Filtration Rate 10 mL/min (>60); Est Glom Filt Rate - Afr Amer 12 mL/min (>60); Glucose 103 mg/dL (74-106); Potassium 4.2 mmol/L (3.5-5.1); Sodium Level 137 mmol/L (136-145)
== END ==
PROVIDERS: PCP Internal Medicine; Referring Provider Physician Assistant; Visit Provider Physician Assistant
DX: T82.898A Other specified complication of vascular prosthetic devices, implants and grafts, initial encounter (principal)
CPT/HCPCS: 36415; 80048; 85025

== ENCOUNTER 2021-02-02 08:18 | Day surgery (SDC) | payer OTHER, MEDICAID, SELFPAY ==
[2021-02-02 08:41] VITALS: BMI 33.6
--- NOTE | 2021-02-02 09:17 | HP.PCM_ITS ---
History and Physical Date of Admission: 02/02/21 Intake Visit Reasons: cannulation issues/bleeing and clots Chief Complaint: recheck fistula--bleeding Medical Technologist Hematology Required: No Is patient in pain?: No Allergies No Known Allergies Allergy (Verified 02/01/21 12:27) Medications compression socks, medium #1 ea 06/25/20 [Rx Confirmed 02/01/21] amlodipine 10 mg PO DAILY 10/26/20 [History Confirmed 02/01/21] carvedilol 25 mg PO BID 10/26/20 [History Confirmed 02/01/21] levothyroxine 100 mcg PO DAILY 10/26/20 [History Confirmed 02/01/21] sevelamer carbonate 800 mg PO TID 10/26/20 [History Confirmed 02/01/21] hydralazine 100 mg tablet 100 mg PO TID #180 tab 11/25/20 [Rx Confirmed 02/01/21] PFSH Medical History Aortic stenosis Asthma Broken teeth Cardiology follow-up encounter FSGS (focal segmental glomerulosclerosis) with nephrosis History of COVID-19 History of echocardiogram History of edema History of renal dialysis Hypertension Hypothyroidism Kidney failure Leg cramps Obesity (BMI 30-39.9) Problem with dialysis access Suture reaction Surgical History History of arteriovenostomy for renal dialysis (~10/2020) History of tonsillectomy Status post biopsy of kidney Family History Mother , age 45 Diabetes Pulmonary embolism Grandmother Kidney disease Brother Hypertension Social History Smoking Status: Never smoker alcohol intake: never substance use type: does not use what type of physical activity do you participate in: other details: physical job HPI HPI HPI: TAMMIE GARRETT, is a 35 M who presents to the office today for post-treatment bleeding. Patient notes last Sunday he was sent to the ED due to not being able to stop the bleeding. He went to [place] where they cauterized the area. He notes all the other times he has held for 10 minutes post-treatment. Dialysis center has also noted difficulty with cannulating. He is maintained on a daily aspirin. He denies pain/discomfort of the forearm or hand. Prior to utilizing the fistula it was marked via marking pen. He denies any recent illnesses or hospitalizations. ROS General General: Yes fatigue; No weight change, appetite, colon cancer, breast cancer or weakness HEENT HEENT: No difficulty swallowing, eye injury, eye surgery, swollen glands or hoarseness Endo Endocrine: No thyroid disease, diabetes mellitus, thyroid cancer, Hair loss, heat intolerance or cold intolerance Skin Skin: No rash or changing moles Breast Breast: No left breast lump, right breast lump, nipple discharge, breast pain, abnormal mammogram, abnormal US or breast enlargement Musc Musculoskeletal: No back problems, arthritis, rheumatoid arthritis, gout or joint pain Cardio Cardiovascular: Yes high blood pressure; No murmur, pacemaker, heart disease, atrial fibrillation, heart attack, heart stent, palpitations, shortness of breat with exertion or chest pain Psych Psychiatric: No depression, anxiety or hearing voices Resp Respiratory: No shortness of breath, No sleep apnea, No cough, No COPD, Yes asthma, No emphysema and No wheezing Gastro Gastrointestinal: No abdominal pain, No nausea or vomiting, No diarrhea, No constipation, No blood in stool, No acid reflux, Yes hemorrhoids, No ulcers, No gallbladder problem and No black,tarry stools Gonsalo Hematologic: No blood thinners, No blood disorders, No bleeding, No anemia and No blood clots Neuro Neurologic: No system reviewed and no additional complaints, except as documented, No as per HPI, No abnormal gait, No abnormal hearing, No abnormal movements, No abnormal speech, No behavioral changes, No burning sensations, No confusion, No convulsions, No disequilibrium, No dizziness, No localized weakness, No frequent falls, No headache(s), No lack of coordination, No loss of vision, No memory loss, No numbness, No other visual disturbances, No radicular pain, No restless legs, No sensory deficit, No syncope, No tingling, No tremor(s), No weakness and No other Exam Const General: cooperative, healthy appearing, comfortable and no acute distress [facility] Head: normal to inspection Eyes General: appearance normal, both eyes and all related structures Neck Neck: normal visual inspection Neck mass: No Resp Effort & Inspection: normal respiratory effort Auscultation: clear to auscultation bilaterally Cardio Rate: regular rate Rhythm: regular rhythm GI Inspection: normal to inspection Palpation: soft Auscultation: normal bowel sounds Skin General: no rashes or lesions noted Neuro General: no focal motor deficits and CN's II-XI intact bilaterally Extrem Other: Left forearm AV fistula- good pulse. Diminished bruit and thrill slightly. Under ultrasound the fistula appears to be patent. There is a slight narrowing under the hypertrophic incision. Psych Appearance: grossly normal Affect: normal affect COVID (Procedure Consent) Procedure Criteria Procedure Criteria: Yes Elective The surgeon/proceduralist and patient have discussed in detail the risk of exposure to and/or potential harm posed by the COVID-19 virus with having a surgery/procedure at this time versus the risk of delaying the surgery/procedure. It is not possible to know either the risk of delaying the surgery or procedure or chance of getting an infection with perfect accuracy, but a joint decision was made between the patient and the surgeon/proceduralist to proceed at this time with the scheduled surgery/procedure as indicated on the consent form. Assessment and Plan Assessment and Plan (1) Problem with dialysis access: Status: Acute Orders: Orders: Basic Metabolic Profile (BMP) Today CBC W/Diff, Automated Today Plan - Keily HAIDER, PA-C: Dr. Gamez will plan to perform a left forearm fistulogram. Procedure details, risks and benefits have been explained. Patient will continue his aspirin. Dr. Gamez will plan to access via medial inferior antecubital region. Patient has had the opportunity to ask and have questions answered. Patient verbally understands and agrees with the plan. I have re-examined the patient. There are no clinical changes since date of exam.
--- NOTE | 2021-02-02 10:18 | OP.PCM_ITS ---
Problems Associated Problem List Diagnoses (1) Problem with dialysis access: Report of Operation Date of Procedure: 02/02/21 Pre-Operative Diagnosis: Diminished flow left upper extremity transposed forearm cephalic vein to brachial artery arteriovenous hemodialysis fistula Post-Operative Diagnosis: 80% stenosis left antecubital cephalic vein fistula stenosis Surgery/Procedure Performed:: Left upper extremity fistulogram with 6 x 2 conquest angioplasty Description of Surgical Findings:: Timeout informed consent was obtained. 35-year-old gentleman was taken to the special procedures lab placed upon the table. He received 50 mcg of fentanyl and 1 mg Versed is intravenous sedation the left upper extremity was sterilely prepped and draped. Ultrasound was used to identify the cephalic vein close to the brachial artery anastomosis just distal to the antecubital crease. 2% lidocaine was instilled as a local anesthetic. Antegrade with flow under ultrasound guidance micropuncture needle inserted micropuncture wire inserted six Lebanese short sheath dilator was inserted using Isovue a fistulogram was obtained of the left upper extremity this demonstrated two dominant side branches in the more distal left upper arm. The fistula itself however was quite dominant throughout. There is a 80% area of stenosis right distal to the antecubital space at the site of fistula curvat ure. I was able to place an 035 angled Glidewire and then placed a 6 x 2 conquest balloon perform balloon angioplasty of this area up to 35 leonor of pressure with good success. Sheath was removed U suture of 4-0 nylon was placed. Images demonstrate a forearm transposed cephalic vein attached to the brachial artery just distal to the antecubital space crossing to the more radial aspect of the very proximal forearm and then establishing the fistula of the cephalic vein of the left arm upper arm. There is good central venous outflow. Two dominant side branches noted in the more distal left upper arm. At the curvature site in the proximal forearm there is an 80% area of stenosis that responded well to 6 x 2 conquest angioplasty. If the patient requires additional treatment in the future would consider possibly a 7 x 2 conquest balloon or a 6 x 2 cutting balloon. Roberth Gamez M.D., F.A.C.S. Surgeon: Roberth Gamez Type of Anesthesia: IV Sedation and Local
== END 2021-02-02 11:20 | disposition home or self-care (01) ==
LOC: CLSP 08:19
PROVIDERS: PCP Internal Medicine; Referring Provider Surgery; Visit Provider Surgery
DX: T82.858A Stenosis of other vascular prosthetic devices, implants and grafts, initial encounter (principal); I87.1 Compression of vein; I10 Essential (primary) hypertension; E03.9 Hypothyroidism, unspecified; N19 Unspecified kidney failure; Z99.2 Dependence on renal dialysis; Z86.16 Personal history of COVID-19; Z79.899 Other long term (current) drug therapy
CPT/HCPCS: 36902; 76937; 99152; 99153; Q9967; C1725; C1769

== ENCOUNTER 2021-05-26 09:50 | Outpatient (CLI) | payer OTHER, MEDICAID, SELFPAY ==
[2021-05-26 12:44] LABS: Free T3 2.7 pg/mL (2.18-3.98); T4 Free Direct 0.95 ng/dL (0.76-1.46); Thyroid Stim Hormone (TSH) 2.92 uIU/mL (0.358-3.74)
== END 2021-05-26 23:59 | disposition home or self-care (01) ==
LOC: BIMLAB 09:51
PROVIDERS: PCP Internal Medicine; Referring Provider Internal Medicine; Visit Provider Internal Medicine
DX: E03.9 Hypothyroidism, unspecified (principal)
CPT/HCPCS: 36415; 84439; 84443; 84481

== ENCOUNTER → 2021-09-08 | Outpatient (CLI) | payer OTHER, MEDICAID, SELFPAY ==
[2021-09-08 09:48] LABS: Cholesterol 221 mg/dL (200); Free T3 2.6 pg/mL (2.18-3.98); High Density Lipoprotein 29 mg/dL; T4 Free Direct 0.85 ng/dL (0.76-1.46); Thyroid Stim Hormone (TSH) 6.58 uIU/mL (0.358-3.74); Triglycerides 771 mg/dL
== END | disposition home or self-care (01) ==
LOC: LAB 08:49
PROVIDERS: PCP Internal Medicine; Visit Provider Internal Medicine
DX: E03.9 Hypothyroidism, unspecified (principal); E66.9 Obesity, unspecified; I10 Essential (primary) hypertension
CPT/HCPCS: 36415; 80061; 84439; 84443; 84481

== ENCOUNTER → 2021-11-19 | Outpatient (CLI) | payer OTHER, MEDICAID, SELFPAY ==
[2021-11-19 09:47] LABS: Absolute Lymphocyte Count 1.82 X10^3/uL (0.83-4.51); Absolute Neutrophil Count 4.7 X10^3/uL (2.0-7.7); Basophil# 0.08 X10^3/uL; Eosinophil# 0.34 X10^3/uL; Eosinophils% 4.4 % (0-5); Hematocrit 38.7 % (40-54); Hemoglobin 13.3 g/dL (13.0-16.5); Lymphocyte # 1.82 X10^3/ul (0.83-4.51); Lymphocyte % 23.6 % (19-41); Mean Corp Hgb Conc 34.4 g/dL (32-36); Mean Corpuscular Hgb 30.9 pg (27.0-32.0); Mean Platelet Vol. 10.2 fl (6.2-12.0); Monocyte# 0.76 X10^3/uL; Monocyte% 9.9 % (0-10); NRBC Flagged by Analyzer 0 % (0-5); Neutrophil # 4.67 X10^3/uL (2.7-7.7); Neutrophil % 60.6 % (47-70); Platelet Count 283 K/mm3 (150-450); RBC Distribution Width SD 45.3 fl (35.1-43.9); White Blood Count 7.7 K/mm3 (4.4-11.0)
[2021-11-19 10:08] LABS: Anion Gap 14 (5-15); BUN 45 mg/dL (7-18); BUN/Creat Ratio 7.2 RATIO (10-20); Calcium,Total 10.8 mg/dL (8.5-10.1); Chloride 97 mmol/L (98-107); Creatinine, Serum 6.22 mg/dL (0.70-1.30); EST Glomerular Filtration Rate 11 mL/min (>60); Est Glom Filt Rate - Afr Amer 13 mL/min (>60); Glucose 114 mg/dL (74-106); Potassium 3.8 mmol/L (3.5-5.1); Sodium Level 138 mmol/L (136-145)
[2021-11-19 10:20] LABS: Cholesterol 241 mg/dL (200); Free T3 2.8 pg/mL (2.18-3.98); High Density Lipoprotein 30 mg/dL; T4 Free Direct 0.81 ng/dL (0.76-1.46); Thyroid Stim Hormone (TSH) 4.25 uIU/mL (0.358-3.74); Triglycerides 984 mg/dL
== END | disposition home or self-care (01) ==
PROVIDERS: PCP Internal Medicine; Referring Provider Physician Assistant; Visit Provider Physician Assistant
DX: T82.898A Other specified complication of vascular prosthetic devices, implants and grafts, initial encounter (principal); E03.9 Hypothyroidism, unspecified; E66.9 Obesity, unspecified; E78.1 Pure hyperglyceridemia
CPT/HCPCS: 36415; 80048; 80061; 84439; 84443; 84481; 85025

== ENCOUNTER 2021-11-23 09:19 | Day surgery (SDC) | payer OTHER, MEDICAID, SELFPAY ==
[2021-11-22 07:00] VITALS: BMI 34.5
--- NOTE | 2021-11-23 09:57 | HP.PCM_ITS ---
History and Physical Date of Admission: 11/23/21 Visit Reasons:?FISTULAGRAM Chief Complaint: Fistulagram Rehabilitation Program Manager Required: No Is patient in pain?: No Allergies No Known Allergies Allergy (Verified 11/07/21 09:31) Medications compression socks, medium #1 ea 06/25/20 [Rx Confirmed 11/07/21] amlodipine 10 mg tablet 10 mg PO DAILY bp 10/26/20 [History Confirmed 11/07/21] carvedilol 25 mg tablet 25 mg PO BID BP 10/26/20 [History Confirmed 11/07/21] sevelamer carbonate 800 mg tablet 800 mg PO TID 10/26/20 [History Confirmed 11/07/21] hydralazine 100 mg tablet 100 mg PO TID BP #180 tabs 11/25/20 [Rx Confirmed 11/07/21] amoxicillin 500 mg tablet 500 mg PO ONCE #1 TAB 05/27/21 [Rx Confirmed 11/07/21] levothyroxine 112 mcg tablet 100 mcg PO DAILY thyroid #90 tabs 09/12/21 [Rx Confirmed 11/07/21] PFSH Medical History? Aortic stenosis Asthma Broken teeth Cardiology follow-up encounter FSGS (focal segmental glomerulosclerosis) with nephrosis History of COVID-19 History of echocardiogram History of edema History of renal dialysis Hypertension Hypothyroidism Kidney failure Leg cramps Obesity (BMI 30-39.9) Problem with dialysis access Suture reaction Surgical History? History of arteriovenostomy for renal dialysis (~10/2020) History of tonsillectomy Status post biopsy of kidney Family History? Mother?? ,? age 45 Diabetes Pulmonary embolismGrandmother Kidney diseaseBrother Hypertension Social History? Smoking Status:? Never smoker alcohol intake:? never substance use type:? does not use what type of physical activity do you participate in:? other details: physical job HPI HPI Surgical H&P: Yes HPI: Patient is a 36 y/o M I am following for problem with dialysis access. Patient notes the original ct scan tech that would access his fistula went on maternity leave. He notes since that time they have had difficulty accessing intermittently his fistula. He notes a button hole technique. He notes the superior button hole is what they are having difficulties with. Once they have the needles in place, he completes his treatments without any issue. His last fistulogram was on 02/02/[address] Gamez. Findings included 80% left antecubital cephalic fistula stenosis. A 6 x 2 conquest angioplasty was performed and successfully treated the stenosis. Patient has dialysis on M,[facility] and F. He dialyzes at [facility]. His welding teacher is Dr. Pichardo. Patient is not maintained on blood thinners at this time. ROS General General: Yes fatigue; No weight change, appetite, colon cancer, breast cancer or weakness HEENT HEENT: No difficulty swallowing, eye injury, eye surgery, swollen glands or hoarseness Endo Endocrine: No thyroid disease, diabetes mellitus, thyroid cancer, Hair loss, heat intolerance or cold intolerance Skin Skin: No rash or changing moles Breast Breast: No left breast lump, right breast lump, nipple discharge, breast pain, abnormal mammogram, abnormal US or breast enlargement Musc Musculoskeletal: No back problems, arthritis, rheumatoid arthritis, gout or joint pain Cardio Cardiovascular: Yes high blood pressure; No murmur, pacemaker, heart disease, atrial fibrillation, heart attack, heart stent, palpitations, shortness of breat with exertion or chest pain Psych Psychiatric: No depression, anxiety or hearing voices Resp Respiratory: No shortness of breath, No sleep apnea, No cough, No COPD, Yes asthma, No emphysema and No wheezing Gastro Gastrointestinal: No abdominal pain, No nausea or vomiting, No diarrhea, No constipation, No blood in stool, No acid reflux, Yes hemorrhoids, No ulcers, No gallbladder problem and No black,tarry stools Gonsalo Hematologic: No blood thinners, No blood disorders, No bleeding, No anemia and No blood clots Neuro Neurologic: No system reviewed and no additional complaints, except as documented, No as per HPI, No abnormal gait, No abnormal hearing, No abnormal movements, No abnormal speech, No behavioral changes, No burning sensations, No confusion, No convulsions, No disequilibrium, No dizziness, No localized weakness, No frequent falls, No headache(s), No lack of coordination, No loss of vision, No memory loss, No numbness, No other visual disturbances, No radicular pain, No restless legs, No sensory deficit, No syncope, No tingling, No tremor(s), No weakness and No other Exam Const General: cooperative, healthy appearing, comfortable and no acute distress [facility] Head: normal to inspection Eyes General: appearance normal, both eyes and all related structures Neck Neck: normal visual inspection Neck mass: No Resp Effort & Inspection: normal respiratory effort and able to speak in complete sentences Auscultation: wheezes right lower and right upper Cardio Rate: regular rate Rhythm: regular rhythm GI Inspection: normal to inspection Musc Cervical Spine: normal cervical lordosis Skin General: no rashes or lesions noted Neuro General: no focal motor deficits and CN's II-XI intact bilaterally Extrem Other: left upper extremity fistula- good pulse, diminished bruit and thrill at the superior button hole. Psych Appearance: grossly normal Affect: normal affect Assessment and Plan Assessment and Plan (1) Problem with dialysis access: ?Status:?Acute ?Plan: Dr. Gamez will plan to perform a left upper extremity fistulogram. Procedure details, risks and benefits have been explained. Patient has had the opportunity to ask and have questions answered. Patient verbally understands and agrees with the plan. Per last fistulogram procedure note, Dr. Gamez would consider possibly utilizing a 7 x 2 conquest balloon or a 6 x 2 cutting balloon at a future treatment. I have re-examined the patient. There are no clinical changes since date of exam. Roberth Gamez M.D., F.A.C.S.
--- NOTE | 2021-11-23 11:48 | OP.PCM_ITS ---
Report of Operation Date of Procedure: 11/23/21 Pre-Operative Diagnosis: Diminished flow left upper arm transposed forearm ceph alic vein to brachial artery arteriovenous hemodialysis fistula Post-Operative Diagnosis: High-grade proximal forearm venous stenosis within 6 cm of the arterial anastomosis. Outflow venous stenosis at the humeral head Surgery/Procedure Performed:: Left upper extremity fistulogram with 7 x 2 cutting balloon angioplasty x2 venous areas Description of Surgical Findings:: Timeout informed consent was obtained. 36-year-old gentleman was taken to the special procedures lab placed upon the table he received 50 mcg of fentanyl 1 mg of Versed is intravenous sedation the left upper extremity was sterilely prepped and draped ultrasound was used to identify the cephalic vein the patient has a cephalic vein that was transposed in the proximal forearm anastomosed to the brachial artery so there is a small looping cephalic vein in the proximal forearm and then up the upper arm. Using Visipaque contrast total of 25 cc was used images were obtained. High-grade 90% stenosis of the cephalic vein at the apex of his arch within the forearm. There is evidence of significant venous spasm within the fistula. There is suspected 70% stenosis of the cephalic vein at the humeral head difficult to image due to the density of venous spasm. It is of note to gain access I used ultrasound injected 2% lidocaine instilled micropuncture needle micropuncture wire 6 [place] short sheath having identified the stenosis we upgraded to a 7 [place] sheath. The patient received 5000's of heparin intravenously. A 7 x 2 cutting balloon was inserted and multiple slow insufflations at least 10 and number were performed of the high-grade venous stenosis. At the completion there was marked improvement with approximately a 10 to 15% recoil. Central images very difficult to obtain as the contrast had to be back flushed with saline in order to break the spasm. I felt that there was disease at the humeral head treated that area with a 7 x 2 conquest balloon. Final images simply demonstrated spasm. Devices were removed. 3 sutures of 4- 0 nylon were placed to the antecubital space to obtain hemostasis. There was a palpable thrill at the completion. The patient tolerated the procedure well no apparent complication. Images demonstrate a transposed left proximal forearm cephalic vein to brachial artery AV fistula with a looping in the proximal forearm and then outflow through the upper arm cephalic vein. There appeared to be high-grade venous stenosis within 6 cm of the anastomosis which seem to resolved to a too high degree after multiple Cutting Balloon insufflations. The cephalic vein at the humeral head was also treated with Cutting Balloon but images could not be cleanly obtained post procedure due to venous spasm. It is of additional note that an attempt during the procedure directed venospasm was performed by giving 200 mcg of nitroglycerin but unfortunate is failed to achieve definitive result. Clinically the patient was much improved at the completion Roberth Gamez M.D., F.A.C.S. Surgeon: Roberth Gamez Type of Anesthesia: IV Sedation and Local
== END 2021-11-23 12:50 | disposition home or self-care (01) ==
LOC: CLSP 09:20
PROVIDERS: PCP Internal Medicine; Visit Provider Surgery
DX: I87.2 Venous insufficiency (chronic) (peripheral) (principal); T82.49XA Other complication of vascular dialysis catheter, initial encounter; I10 Essential (primary) hypertension; E03.9 Hypothyroidism, unspecified; Z86.16 Personal history of COVID-19; Z79.899 Other long term (current) drug therapy; X58.XXXA Exposure to other specified factors, initial encounter
CPT/HCPCS: 36902; 76937; 99152; 99153; C1725; C1769; C1894

== ENCOUNTER 2021-11-26 20:31 | Emergency (ER) | payer OTHER, MEDICAID, SELFPAY ==
[2021-11-26 20:32] VITALS: BP 155/81; PULSE 88; RESP 18; TEMP 37.1; O2SAT 96; BMI 32.3
--- NOTE | 2021-11-26 20:59 | RAD_ITS ---
INDICATION: pain'' EXAMINATION/TECHNIQUE: X-RAY - XR Pelvis 1 or 2 Views: 2 image AP pelvis COMPARISON: None. FINDINGS: PELVIC BONES: No displaced fracture, destructive or sclerotic lesions. Note that overlapping bowel shadows may however obscure fine detail. Sacroiliac joints are unremarkable. No widening of the pubic symphysis. HIPS: Preserved hip joint spacing. Small right os acetabulum. No displaced femoral fracture seen in this frontal view. SOFT TISSUES: Low pelvic phleboliths. RAD/Pelvis 1 or 2 Views IMPRESSION: Hydroxyapatite deposition suggested at the greater tuberosity compatible with calcific tendinitis Electronically Signed: Jan Aden MD at 22:19 EDT ,
--- NOTE | 2021-11-26 20:59 | EDS_ITS ---
HPI History of Present Illness HPI Narrative: Atraumatic right hip pain. No fall or injury. Chief Complaint: Lower Extremity Injury Informant: patient Occured/Mechanism Mechanism/Context: No injury and No blunt trauma Onset/Context/Timing Onset: Days Context: Gradual Onset Timing: Continuous Quality of Pain: Dull and Aching Current Severity: Mild Maximum Severity: Mild Associated Symptoms Associated Symptoms: Negative for Parasthesia, Weakness or Loss of Funtion Narrative Narrative: 36-year-old male history of chronic kidney disease and dialysis. History of hypertension. States for about a week he has had gradual onset of right proximal hip and thigh pain. Denies any fall injury or trauma. No swelling. No redness. No warmth. No fever or chills. He is never had surgery to his hip. Denies any known injury. No prior history. Prior similar symptoms: No Recent Illness/Hospitalization: No PFSH PFSH Medical History Aortic stenosis Asthma Broken teeth Cardiology follow-up encounter FSGS (focal segmental glomerulosclerosis) with nephrosis History of COVID-19 History of echocardiogram History of edema History of renal dialysis Hypertension Hypothyroidism Kidney failure Leg cramps Obesity (BMI 30-39.9) Problem with dialysis access Suture reaction Home Medications compression socks, medium #1 ea 06/25/20 [Rx Last Taken Unknown] amlodipine 10 mg tablet 10 mg PO DAILY bp 10/26/20 [History Last Taken 11/23/21] carvedilol 25 mg tablet 25 mg PO BID BP 10/26/20 [History Last Taken 11/23/21] sevelamer carbonate 800 mg tablet 800 mg PO TID 10/26/20 [History Last Taken Unknown] hydralazine 100 mg tablet 100 mg PO TID BP #180 tabs 11/25/20 [Rx Last Taken 11/23/21] amoxicillin 500 mg tablet 500 mg PO ONCE #1 TAB 05/27/21 [Rx Last Taken Unknown] levothyroxine 112 mcg tablet 112 mcg PO DAILY thyroid #90 tabs 11/21/21 [Rx Last Taken 11/23/21] rosuvastatin 20 mg tablet 20 mg PO DAILY #30 tabs 11/24/21 [Rx Last Taken Unknown] Allergy/AdvReac Type Severity Reaction Status Date / Time No Known Allergies Allergy Verified 11/26/21 20:31 Family History Mother , age 45 Diabetes Pulmonary embolism Grandmother Kidney disease Brother Hypertension Surgical History History of arteriovenostomy for renal dialysis (~10/2020) History of tonsillectomy Status post biopsy of kidney Social History Smoking Status: Never smoker alcohol intake: never substance use type: does not use what type of physical activity do you participate in: other details: physical job ROS ROS ED ROS Narrative Denies recent illness. Review of Systems ROS Unobtainable: Denies due to encephalopathy Constitutional Constitutional ED: Denies chills or fever(s) Eyes Eyes: Denies blurry vision ENT ENT ED: Denies ear pain Cardiovascular Cardiovascular: Denies chest pain Respiratory/Chest Respiratory/Chest: Denies cough or dyspnea Gastrointestinal Gastrointestinal: Denies abdominal pain Genitourinary Genitourinary ED: Denies dysuria or hematuria Musculoskeletal Musculoskeletal: Denies arthralgias Integumentary Denies abscess Neurologic Neurologic: Denies headache(s) Psychiatric Psychiatric: Denies anxiety Endocrine Endocrinology: Denies polydipsia Hematologic/Lymphatic Hematologic/Lymphatic: Denies easy bleeding Allergic/Immunologic Allergic/Immunologic ED: Denies mouth swelling or tongue swelling EXAM Physical Exam Narrative Exam Narrative: Well-appearing 36-year-old male. Vital signs stable afebrile. HEENT exam unremarkable. Lungs are clear. Heart regular rhythm. Abdomen soft nontender. Back nontender right SI joint nontender. Right hip is tenderness along the proximal thigh along the femur. No deformity. No redness or warmth. No swelling. No cords. He is able do flexion extension of his right hip knee ankle and foot. There is no calf pain or tenderness. No swelling. He has normal motor strength and sensation in his right foot. Const Vital Signs: 11/26/21 20:32 11/26/21 21:46 Temperature 98.8 F Temperature Source Temporal Pulse Rate 88 Respiratory Rate 18 Blood Pressure 155/81 H Blood Pressure Mean 105 Pulse Ox 96 98 Oxygen Delivery Method Room Air Room Air Positive well nourished, well developed and obese; Negative for cachectic, contractures or unkempt General Appearance ED: well developed and NAD; Negative for unkempt, cachectic or contractures Nutritional Appearance: obese; Negative for cachectic HEENT Reports moist mucous membranes normocephalic and atraumatic; Negative for trauma Eyes PERRL General Eye ED: Negative for other Neck full ROM and supple Thyroid: Negative for tender Lymph Lymphatic: Negative for other Chest Wall inspection of chest normal and palpation of chest normal Chest: Negative for other Resp normal respiratory effort, no retractions and clear to auscultation bilaterally Effort and Inspection: Negative for pain with movement Auscultation: Negative for rales, rhonchi or wheezes Cardio regular rate, regular rhythm, S1 normal heart sound, S2 normal heart sound and no murmurs Rate: Negative for bradycardia Rhythm: Negative for abnormal rhythm Bruits: Negative for other GI non-tender, non-distended and no masses Inspection: Negative for abdominal distention Auscultation: normoactive bowel sounds Palpation: soft; Negative for tender, guarding or rebound tenderness present Back/Spine no CVA tenderness General Back: Negative for CVA tenderness Cervical Spine: Negative for cervical spine tenderness Thoracic Spine / Upper Back: Negative for thoracic spinal tenderness Lumbar Spine / Lower Back: Negative for lumbar spinal tenderness Extremity normal to inspection and full ROM Extremity Narrative: Right hip normal appearance. Normal range of motion. No signs of infection. No deformity. Mild tenderness. General Extremety ED: Negative for cyanosis or edema General Extremity: Negative for cyanosis or edema Neuro oriented x3 and moves all extremities Sensorium / Orientation: alert, oriented to person, oriented to place and oriented to time; Negative for orientation impaired, confused, lethargic or stuporous Motor Exam: strength 5/5 throughout Psych mental status grossly normal Appearance: Negative for unkempt Speech: No other Mood & Affect: Negative for anxious Skin no wounds Lesions: no lesions Rashes: no rashes Trauma: Negative for abrasion MDM MDM MDM Narrative Medical decision making narrative: Dialysis patient with atraumatic right hip pain. X-rays being obtained. Denies any fall or trauma. There is no signs of infection on exam. No sciatica. Repeat exam patient doing well at 10:40 PM. We went over his x-ray results. He will be discharged home follow-up with primary care physician. Ice and anti- inflammatories if not improving follow-up. Radiography Diagnostic Testing: Clinical Impression(s) from Imaging Studies Pelvis X-Ray 11/26/21 20:59 IMPRESSION: Hydroxyapatite deposition suggested at the greater tuberosity compatible with calcific tendinitis Electronically Signed: Jan Aden MD at 22:19 EDT , Femur X-Ray 11/26/21 21:50 IMPRESSION: Findings concerning for right greater tuberosity gluteal tendon calcific tendinitis Electronically Signed: Jan Aden MD at 22:23 EDT , Right hip and pelvis x-ray 4 views interpreted by myself shows in the radiologist shows no acute abnormality. No fracture. There are some calcified tendon off the greater tuberosity. Right femur x-ray 2 views interpreted by myself shows no acute abnormality. Interpreted both by myself and the radiologist. Discharge Plan Triage Chief Complaint: Lower Extremity Injury ED Provider: Edgar Okeefe Dx/Rx/DC Orders Clinical Impression: Acute hip pain, Hypertension, Chronic kidney disease Instructions: ED Pain, Acute, Uncertain Cause Prescriptions: No Action (DME) compression socks, medium Misc See Rx Instructions .ROUTE .MEDSUPPLY Qty: 1 1RF Rx Instructions: As directed amoxicillin 500 mg tablet 500 mg PO ONCE Qty: 1 0RF Rx Instructions: take prior to dental procedure carvedilol 25 mg tablet 25 mg PO BID Label Comments: TAKE 1 TABLET BY MOUTH TWICE DAILY sevelamer carbonate 800 mg tablet 800 mg PO TID amlodipine 10 mg tablet 10 mg PO DAILY hydralazine 100 mg tablet 100 mg PO TID Qty: 180 0RF levothyroxine 112 mcg tablet 112 mcg PO DAILY Qty: 90 1RF rosuvastatin 20 mg tablet 20 mg PO DAILY Qty: 30 2RF Primary Care Provider: Toshia Mario Referrals: Toshia Mario MD [Primary Care Provider] - 10-14 Days if not better Activity Restrictions/Additional Instructions: Hip x-rays were basically unremarkable other than some calcification of the tendon off your hip. Pain appears to be musculoskeletal could be inflammation in your hip joint. There is no signs of infection. Nothing broken or dislocated. Ice to your hip. Motrin for pain. Follow-up with your doctor if not improving. Disposition Disposition: Home, Self Care
[2021-11-26 21:46] VITALS: O2SAT 98
--- NOTE | 2021-11-26 21:50 | RAD_ITS ---
STUDY: X-RAY - RIGHT FEMUR REASON FOR STUDY: Male, 36 years old. pain TECHNIQUE: Frontal and lateral view(s) of the femur. COMPARISON: None. FINDINGS: Localized bulky soft tissue mineralization within the stent margins at the gluteal insertion concerning compatible with hydroxyapatite deposition. Right os acetabulum. Mild soft tissue edema suggested lateral to the right hip. No fracture. No dislocation. Normal bone mineralization. RAD/Femur Min 2 Views IMPRESSION: Findings concerning for right greater tuberosity gluteal tendon calcific tendinitis Electronically Signed: Jan Aden MD at 22:23 EDT ,
[2021-11-26 22:40] VITALS: BP 130/78; O2SAT 99
== END 2021-11-26 22:52 | disposition home or self-care (01) ==
PROVIDERS: Emergency Provider Emergency Medicine; PCP Internal Medicine; Visit Provider Emergency Medicine
DX: M25.551 Pain in right hip (principal); Z99.2 Dependence on renal dialysis; I12.9 Hypertensive chronic kidney disease with stage 1 through stage 4 chronic kidney disease, or unspecified chronic kidney disease; N18.9 Chronic kidney disease, unspecified; E66.9 Obesity, unspecified; Z86.16 Personal history of COVID-19
CPT/HCPCS: 72170; 73552; 99282